=== PATIENT | male | born 1965 | race Caucasian/White ===

== ENCOUNTER 2016-06-04 23:00 | Emergency (ER) | payer MEDICARE, MEDICAID ==
[2016-06-04] MEDS ORDERED: LORazepam INJ* 2 MG/ML 1 ML VIAL IM ONE (23:13)
[2016-06-04] MEDS ORDERED: diPHENhydraMINE IV* 50 MG/ML 1 ml VIAL (BENADRYL) IM ONE (23:13)
[2016-06-04] MEDS ORDERED: Haloperidol INJ IV/IM* 5 MG/ML AMP IM ONE (23:13)
--- NOTE | 2016-06-05 00:11 | ED ---
Josh Alva Alok, derek for Alex Terrell MD on 06/04/16 at 2305 . Complex/Multi-Sys Presentation - HPI Summary HPI Summary: 51 y/o male presents to the ED BIBA. Pt is a level 5 caveat and contributes no medical information at this time.Pt trook overdose of heroin, found minimally responsive, awoke with narcan - History Of Current Complaint Time Seen by Provider: 06/04/16 23:02 Hx From Patient Unobtainable Due To: Altered Mental Status - Level 5 caveat, Hostile - Allergies/Home Medications Allergies/Adverse Reactions: Allergies Allergy/AdvReac Type Severity Reaction Status Date / Time Bupropion [From Wellbutrin] AdvReac Itching Verified 05/11/15 17:08 PMH/Surg Hx/FS Hx/Imm Hx - Family History Known Family History: Positive: Unknown - Level 5 caveat Review of Systems All Other Systems Reviewed And Are Negative: No Physical Exam Triage Information Reviewed: Yes Vital Signs On Initial Exam: Initial Vitals Resp 20 06/04/16 23:30 Vital Signs Reviewed: Yes Completion Of Physical Exam Limited Due To: Level 5 Appearance: Positive: Thin - responsive to stimuli Skin: Positive: Warm Head/Face: Positive: Normal Head/Face Inspection Eyes: Positive: SID ENT: Positive: Hearing grossly normal Neck: Positive: Supple Respiratory/Lung Sounds: Positive: Clear to Auscultation, Breath Sounds Present Cardiovascular: Positive: RRR Abdomen Description: Positive: Nontender, Soft Bowel Sounds: Positive: Present Musculoskeletal: Positive: Strength/ROM Intact Neurological: Positive: Sensory/Motor Intact Diagnostics - Vital Signs Vital Signs Resp 06/04/16 23:30 20 - Laboratory Result Diagrams: 06/05/16 01:40 06/05/16 01:40 Lab Statement: Any lab studies that have been ordered have been reviewed, and results considered in the medical decision making process. Re-Evaluation - Re-Evaluation First Eval Re-Evaluation Time: 06:06 Change: Improved - awake. alert. denies si,hi Complex Multi-Symp Course/Dx - Diagnoses Provider Diagnoses: Drug overdose Discharge - Discharge Plan Condition: Stable Disposition: HOME Referrals: Andi Montoya MD [Primary Care Provider] - The documentation as recorded by the Josh barajas Alok accurately reflects the service I personally performed and the decisions made by me, Alex Terrell MD.
[2016-06-05 02:15] LABS: Hematocrit 39 % (42-52); Hemoglobin 12.8 g/dl (14.0-18.0); Mean Corpuscular HGB Conc 33 g/dl (31-36); Mean Corpuscular Hemoglobin 29 pg (27-31); Mean Corpuscular Volume 87 fL (80-94); Mean Platelet Volume 8 um3 (7.4-10.4); Red Blood Count 4.46 10^6/ul (4.0-5.4); Red Cell Distribution Width 14 % (10.5-15); White Blood Count 3.9 10^3/ul (3.5-10.8)
[2016-06-05 02:24] LABS: ALT 7 U/L (7-52); AST 17 U/L (13-39); Albumin 3.6 g/dL (3.2-5.2); Alkaline Phosphatase 62 U/L (34-104); Anion Gap 3 mmol/L (2-11); BUN/Creatinine Ratio 24.7 (8-20); Blood Urea Nitrogen 20 mg/dL (6-24); CO2 Carbon Dioxide 32 mmol/L (22-32); Calcium 8.7 mg/dL (8.6-10.3); Chloride 103 mmol/L (101-111); EGFR African American 130.8 (>60); EGFR Non-African American 101.7 (>60); Globulin 2.4 g/dL (2-4); Glucose 90 mg/dL (70-100); Potassium 3.5 mmol/L (3.5-5.0); Sodium 138 mmol/L (133-145)
[2016-06-05 02:26] LABS: Acetaminophen < 15 mcg/mL; Alcohol < 10 mg/dL (<10); Salicylate < 2.50 mg/dL (<30)
[2016-06-05 06:34] VITALS: BP 102/75
== END 2016-06-05 06:28 | disposition home or self-care (01) ==
LOC: EDUNIT# → EDBD → ED 23:00
DX: T50.901A Poisoning by unspecified drugs, medicaments and biological substances, accidental (unintentional), initial encounter (principal); R41.82 Altered mental status, unspecified; Y92.9 Unspecified place or not applicable
CPT/HCPCS: 36415; 80053; 80320; 80329; 83605; 85025; 96372; 99285; G0480; J1200; J1630; J2060

== ENCOUNTER 2017-04-07 18:18 | Emergency (ER) | payer MEDICARE, MEDICAID ==
[2017-04-07] MEDS ORDERED: traMADol TAB* 50 MG PO ONE (19:28)
[2017-04-07] MEDS ORDERED: Ibuprofen TAB* 400 MG PO ONE (19:28)
[2017-04-07] MEDS ORDERED: oxyCODONE/Acetamin 5/325 MG* TAB PO ONE (19:46)
[2017-04-07] MEDS ORDERED: oxyCODONE/Acetamin 5/325 MG* TAB PO PRN (20:15)
[2017-04-07 21:12] VITALS: BP 124/70
--- NOTE | 2017-04-07 22:50 | ED ---
Giovani Alva Gabriel, scribed for Pk Cho MD on 04/07/17 at 1932 . Complex/Multi-Sys Presentation - HPI Summary HPI Summary: This patient is a 51 year old M presenting to [facility] after he ran out of his daily pain medication. The patient rates the pain 8/10 in severity. Patient reports general malaise, heart pain, and increased anxiety. He states he usually takes oxymorphone for neuropathy but has been out since 04/03/17. Additionally he reports inability to eat or sleep due to pain and is requesting pain medication and food. - History Of Current Complaint Chief Complaint: EDGeneral Time Seen by Provider: 04/07/17 19:12 Hx Obtained From: Patient Onset/Duration: Still Present Timing: Constant Severity Currently: Severe Severity Initially: Severe Associated Signs And Symptoms: Positive: Other - pain, general malaise, heart pain, and increased anxiety - Allergies/Home Medications Allergies/Adverse Reactions: Allergies Allergy/AdvReac Type Severity Reaction Status Date / Time Bupropion [From Wellbutrin] AdvReac Itching Verified 05/11/15 17:08 PMH/Surg Hx/FS Hx/Imm Hx Respiratory History: Reports: Hx Pneumonia Musculoskeletal History: Reports: Other Musculoskeletal History - Bilateral Leg Neuropathy Sensory History: Reports: Hx Contacts or Glasses Opthamlomology History: Reports: Hx Contacts or Glasses Neurological History: Reports: Other Neuro Impairments/Disorders - Bilateral Leg "Neuropathy" Psychiatric History: Reports: Hx Anxiety, Hx Depression, Hx Inpatient Treatment - [facility] [place] and [facility], Hx [facility], Hx Suicide Attempt - Cut wrist and OD, Hx of Violent Episodes Against Others, Hx Substance Abuse - Alcohol - Surgical History Surgery Procedure, Year, and Place: Tonsillectomy Infectious Disease History: No Infectious Disease History: Reports: Hx Hepatitis - Hepatitis C, History Other Infectious Disease - Reports having "genital warts" Denies: Traveled Outside the [place] in Last 30 Days - Family History Known Family History: Positive: Hypertension Negative: Diabetes, Renal Disease, Respiratory Disease, Seizure Disorder - Social History Alcohol Use: unknown Alcohol Amount: cannot assess Substance Use Type: Reports: Marijuana Substance Use Comment - Amount & Last Used: States taking a couple hits off a Marijuana cigarette last week. Hx Tobacco Use: Yes Smoking Status (MU): Current Every Day Smoker Type: Cigarettes Amount Used/How Often: 1/2 PPD Have You Smoked in the Last Year: Yes Review of Systems Positive: Other - general pain, general malaise. Negative: Fever Positive: Other - heart pain Positive: Anxious All Other Systems Reviewed And Are Negative: Yes Physical Exam - Summary Physical Exam Summary: Appearance: Well-appearing, no distress, Well-nourished Skin: Warm, color reflects adequate perfusion Head: Normal Head/Face inspection Eyes: Conjunctiva clear ENT: Normal inspection Neck: Supple, no nodes, no JVD. Respiratory: Lungs clear, Normal breath sounds, no respiratory distress Cardio: RRR, No murmur, pulses normal, brisk capillary refill Abdomen: soft, nontender, no guarding, no rebound Bowel sounds: present Musculoskeletal: Strength Intact/ ROM intact. No calf tenderness. No edema. Neuro: Alert, muscle tone normal, facial symmetry, speech normal, sensory/motor intact Psychological: Normal Triage Information Reviewed: Yes Vital Signs On Initial Exam: Initial Vitals Temp Pulse Resp BP Pulse Ox 98.8 F 88 20 128/73 97 04/07/17 18:31 04/07/17 18:31 04/07/17 18:31 04/07/17 18:31 04/07/17 18:31 Vital Signs Reviewed: Yes Diagnostics - Vital Signs Vital Signs Temp Pulse Resp BP Pulse Ox 04/07/17 19:20 80 99 04/07/17 19:18 70/49 04/07/17 18:31 98.8 F 88 20 128/73 97 - Laboratory Lab Statement: Any lab studies that have been ordered have been reviewed, and results considered in the medical decision making process. Re-Evaluation - Re-Evaluation First Eval Change: Improved - Pt symptoms improved with Po analgesia. Plan for pt to f.u with his provider for further evaluation and tx. Complex Multi-Symp Course/Dx - Diagnoses Differential Diagnoses/HQI/PQRI: Metabolic Abnormality, Urinary Tract Infection , Other Provider Diagnoses: Chronic pain Discharge - Discharge Plan Condition: Improved Disposition: HOME Patient Education Materials: Chronic Pain (ED) Referrals: Luis F Thao MD [Primary Care Provider] - 2 Days Additional Instructions: RETURN TO EMERGENCY DEPARTMENT FOR ANY NEW OR WORSENING SYMPTOMS The documentation as recorded by the Giovani barajas Gabriel accurately reflects the service I personally performed and the decisions made by , Pk Cho MD.
== END 2017-04-07 21:12 | disposition home or self-care (01) ==
LOC: ED 18:18
DX: G89.29 Other chronic pain (principal); F17.210 Nicotine dependence, cigarettes, uncomplicated; Z88.8 Allergy status to other drugs, medicaments and biological substances
CPT/HCPCS: 99282; A9270-GY

== ENCOUNTER 2018-11-06 09:55 | Emergency (ER) | payer MEDICARE, MEDICAID ==
[2018-11-06 10:02] VITALS: BP 0/0
--- NOTE | 2018-11-06 10:19 | ED ---
Complex/Multi-Sys Presentation - HPI Summary HPI Summary: This pt is a 52 Y/O M presenting to [facility] for a CC of pain that is rated a 10/ 10 in severity and has worsened since 11/04/18. The pt states that Dr. Lopez and Dr. Herrera cut his medications on 11/04/18 for neuropathy. He states that he has been unable to sleep and eat due to the pain. The pain is present in his lower extremities, abdomen, back, chest, upper extremity, and neck. He denies any SOB, fevers, and chills. He has no alleviating factors. He stated that while he was on his medications he did not feel any pain. He takes Oxymorphone and Gabapentin for his neuropathy. He has a SHx of recreational drug use, cigarette use, and alcohol use. He stated that he has increased the amount he drinks due to the pain and being unable to sleep. - History Of Current Complaint Chief Complaint: EDGeneral Time Seen by Provider: 11/06/18 10:02 Hx Obtained From: Patient Onset/Duration: Sudden Onset, Still Present, Worse Since - 11/04/18 Timing: Constant Severity Currently: Severe Severity Initially: Moderate Location: Pain At: - Pt states that the pain is over his entire body Aggravating Factor(s): Pt states that his medications were D/C'd Alleviating Factor(s): nothing Associated Signs And Symptoms: Positive: Chest Pain, Abdominal Pain, Back Pain, Decreased Oral Intake, Other - sleep disturbances, neck pain, lower extremity pain, upper extremity pain, chills. Negative: SOB, Fever Related History: Other - neuropathy - Allergies/Home Medications Allergies/Adverse Reactions: Allergies Allergy/AdvReac Type Severity Reaction Status Date / Time bupropion [From Wellbutrin] Allergy Unknown Itching Unverified 11/06/18 10:10 PMH/Surg Hx/FS Hx/Imm Hx Previously Healthy: No Respiratory History: Reports: Hx Pneumonia Musculoskeletal History: Reports: Other Musculoskeletal History - Bilateral Leg Neuropathy Sensory History: Reports: Hx Contacts or Glasses Opthamlomology History: Reports: Hx Contacts or Glasses Neurological History: Reports: Other Neuro Impairments/Disorders - Bilateral Leg "Neuropathy" Psychiatric History: Reports: Hx Anxiety, Hx Depression, Hx Inpatient Treatment - [facility] [place] and [facility], Hx [facility], Hx Suicide Attempt - Cut wrist and OD, Hx of Violent Episodes Against Others, Hx Substance Abuse - Alcohol - Surgical History Surgery Procedure, Year, and Place: Tonsillectomy Infectious Disease History: Unable to Obtain/Confirm Infectious Disease History: Reports: Hx Hepatitis - Hepatitis C, History Other Infectious Disease - Reports having "genital warts" Denies: Traveled Outside the [place] in Last 30 Days - Family History Known Family History: Positive: Unknown - Level 5 caveat, Hypertension Negative: Diabetes, Renal Disease, Respiratory Disease, Seizure Disorder - Social History Alcohol Use: unk Alcohol Amount: pt not answering questions 11/06/18 Substance Use Type: Reports: Other Substance Use Comment - Amount & Last Used: unk, pt not answering questions 11/06 Hx Tobacco Use: Yes Smoking Status (MU): Unknown if Ever Smoked Type: Cigarettes Amount Used/How Often: 1/2 PPD Have You Smoked in the Last Year: Yes Review of Systems Negative: Fever, Chills ENT: Other - neck pain Positive: Chest Pain Negative: Shortness Of Breath Positive: Abdominal Pain Positive: Other - lower and upper extremity pain Neurological: Other - decreased appetite Psychological: Other - sleep disturbances All Other Systems Reviewed And Are Negative: Yes Physical Exam - Summary Physical Exam Summary: Constitutional: Well-developed, Well-nourished, Alert. (-) Distressed Skin: Warm, Dry HENT: Normocephalic; Atraumatic Eyes: Conjunctiva normal Neck: Musculoskeletal ROM normal neck. (-) JVD, (-) Stridor, (-) Tracheal deviation Cardio: Rhythm regular, rate normal, Heart sounds normal; Intact distal pulses; The pedal pulses are 2+ and symmetric. Radial pulses are 2+ and symmetric. (-) Murmur Pulmonary/Chest wall: Effort normal. (-) Respiratory distress, (-) Wheezes, (-) Rales Abd: Soft, (-) tenderness, (-) Distension, (-) Guarding, (-) Rebound Musculoskeletal: (-) Edema Lymph: (-) Cervical adenopathy Neuro: Alert, Oriented x3 Psych: Mood and affect Normal Triage Information Reviewed: Yes Vital Signs On Initial Exam: Initial Vitals Temp Pulse Resp BP Pulse Ox 0 F 0 0 0/0 0 11/06/18 09:59 11/06/18 09:59 11/06/18 09:59 11/06/18 09:59 11/06/18 09:59 Vital Signs Reviewed: Yes Diagnostics - Vital Signs Vital Signs Temp Pulse Resp BP Pulse Ox 11/06/18 09:59 0 F 0 0 0/0 0 - Laboratory Lab Statement: Any lab studies that have been ordered have been reviewed, and results considered in the medical decision making process. Complex Multi-Symp Course/Dx Course Of Treatment: Patient is mundo as he is out of pain medication. Patient was hostile to myself and the staff here. Patient was making threats to past physicians who stopped treating him. Patient had an emergent condition here. Patient's doctor was called and states he is referred to pain clinic who never saw him and referred him to detox. Patient is also given detox instructions here. - Diagnoses Provider Diagnoses: Opiate addiction, Chronic pain Discharge ED - Sign-Out/Discharge Documenting (check all that apply): Patient Departure - discharge Patient Received Moderate/Deep Sedation with Procedure: No - Discharge Plan Condition: Stable Disposition: HOME Patient Education Materials: Pain Management (ED), Chronic Pain (ED), Opioid Use Disorder (ED) Referrals: [facility] - Residential Facility [Outside] - As Soon As Possible [facility],. [Indexing, APPLICATION, OTHER] - As Soon As Possible Luis F Thao MD [Primary Care Provider] - 2 Days Additional Instructions: PLEASE FOLLOW UP WITH YOUR PRIMARY CARE PROVIDER IN 2-3 DAYS AND RETURN TO THE EMERGENCY DEPARTMENT FOR ANY NEW OR WORSENING SYMPTOMS. ALSO FOLLOW UP WITH [facility] AND [facility] FOR FURTHER EVALUATIONS. - Billing Disposition and Condition Condition: STABLE Disposition: Home - Attestation Statements Document Initiated by Jacky: Yes Documenting Scribe: Luis King Provider For Whom Jacky is Documenting (Include Credential): Rajesh Charles MD Scribe Attestation: ILuis, scribed for Rajesh Charles MD on 11/06/18 at 1218. Scribe Documentation Reviewed: Yes Provider Attestation: The documentation as recorded by the Luis barajas accurately reflects the service I personally performed and the decisions made by me, Rajesh Charles MD Status of Scribe Document: Viewed Consult Consult: Dr. Herrera, [facility], was consulted at 1024 and stated that he has never seen the pt before. Dr. Lopez, internal medicaine, was consulted at 1058 and informed of the pt. Per Dr. Lopez he was referred to him by his old doctor for pain. Dr. Lopez did not want to prescribe the pt any opiates and referred him to Dr. Herrera who then referred the pt to [facility] and [facility]. Dr. Lopez recommended referring the pt to [facility] to help with opiate addiction.
== END 2018-11-06 11:11 | disposition home or self-care (01) ==
LOC: ED 09:55
DX: G89.29 Other chronic pain (principal); F11.20 Opioid dependence, uncomplicated; F41.9 Anxiety disorder, unspecified; F32.9 Major depressive disorder, single episode, unspecified; F17.210 Nicotine dependence, cigarettes, uncomplicated; Z88.8 Allergy status to other drugs, medicaments and biological substances; Z79.899 Other long term (current) drug therapy
CPT/HCPCS: 99283

== ENCOUNTER 2018-11-11 17:40 | Emergency (ER) | payer MEDICARE, MEDICAID ==
[2018-11-11 17:50] VITALS: BP 00/0
--- NOTE | 2018-11-11 18:53 | ED ---
Psychiatric Complaint - HPI Summary HPI Summary: The patient is a 53 y/o M presenting to [facility] with cc of pain all over his body today. He called EMS who brought him here, but he has been violent and [employer] assisted in transport. He has been taken off all of his psychiatric medications because he refuses to go to the doctors or follow up with detox regimen as recommended. He states difficulty sleeping secondary to pain. He is threatening staff. PMHx: anxiety, depression, inpatient treatment, suicide attempt, violent episodes against others, substance abuse, hepatitis C. Pt noncontributory for social history at this time. Allergies noted. - History Of Current Complaint Chief Complaint: EDPsychosocial Time Seen by Provider: 11/11/18 17:48 Hx Obtained From: Patient, EMS, Other: - police Onset/Duration: Still Present Timing: Constant Severity Initially: Severe Severity Currently: Severe Character: Angry Aggravating Factor(s): Medication Non-compliance Associated Signs And Symptoms: Positive: Hostile Related History: Positive For: Prior Psychiatric Issues Has Homicidal: Reports: Thoughts - Allergies/Home Medications Allergies/Adverse Reactions: Allergies Allergy/AdvReac Type Severity Reaction Status Date / Time bupropion [From Wellbutrin] Allergy Unknown Itching Verified 11/11/18 22:26 PMH/Surg Hx/FS Hx/Imm Hx Respiratory History: Reports: Hx Pneumonia Musculoskeletal History: Reports: Other Musculoskeletal History - Bilateral Leg Neuropathy Sensory History: Reports: Hx Contacts or Glasses Opthamlomology History: Reports: Hx Contacts or Glasses Neurological History: Reports: Other Neuro Impairments/Disorders - Bilateral Leg "Neuropathy" Psychiatric History: Reports: Hx Anxiety, Hx Depression, H[place] [facility] [place] [facility], Hx [facility], Hx Suicide Attempt - Cut wrist and OD, Hx of Violent Episodes Against Others, Hx Substance Abuse - Alcohol - Surgical History Surgery Procedure, Year, and Place: Tonsillectomy Infectious Disease History: No Infectious Disease History: Reports: Hx Hepatitis - Hepatitis C, History Other Infectious Disease - Reports having "genital warts" Denies: Traveled Outside the [place] in Last 30 Days - Family History Known Family History: Positive: Unknown - Level 5 caveat, Hypertension Negative: Diabetes, Renal Disease, Respiratory Disease, Seizure Disorder - Social History Alcohol Use: WONT ELABORATE Alcohol Amount: pt not answering questions 11/06/18 Substance Use Type: Reports: Other Substance Use Comment - Amount & Last Used: unk, pt not answering questions 11/06 Hx Tobacco Use: Yes Smoking Status (MU): Unknown if Ever Smoked Type: Cigarettes Amount Used/How Often: 1/2 PPD Have You Smoked in the Last Year: Yes Review of Systems Positive: Other - shouting threats Psychological: Other - irritated, HI All Other Systems Reviewed And Are Negative: Yes Physical Exam - Summary Physical Exam Summary: General: Well appearing, no distress Cardiovascular: Skin is well perfused Pulmonary: No respiratory distress, no tachypnea Abdomen: Non-distended Skin: Warm, pink, dry Psych: Angry, shouting Neuro: A&Ox3 Triage Information Reviewed: Yes Vital Signs On Initial Exam: Initial Vitals Temp Pulse Resp BP Pulse Ox 0 F 0 0 00/0 0 11/11/18 17:48 11/11/18 17:48 11/11/18 17:48 11/11/18 17:48 11/11/18 17:48 Vital Signs Reviewed: Yes Diagnostics - Vital Signs Vital Signs Temp Pulse Resp BP Pulse Ox 11/11/18 17:57 0 F 0 0 00/0 0 11/11/18 17:48 0 F 0 0 00/0 0 - Laboratory Lab Statement: Any lab studies that have been ordered have been reviewed, and results considered in the medical decision making process. Course/Dx - Course Course Of Treatment: Patient called EMS due to his chronic pain. I evaluated patient roughly 1 week ago and patient was referred to pain clinic. Patient's referral to pain clinic and it up and referral to detox. Patient came in as he does not have access to his opiate medication. The incident patient saw me, he started yelling at me about the visit from last week. Patient states she went to [facility] but they had to pay 200 also be evaluated. Patient was told we cannot manage his chronic pain from the emergency department and became irate. Patient then spat on my right cheek. Patient was discharged. - Differential Dx/Clinical Impression Provider Diagnosis: Opiate abuse, continuous Discharge ED - Sign-Out/Discharge Documenting (check all that apply): Patient Departure - Patient will be dishcarged home. Patient Received Moderate/Deep Sedation with Procedure: No - Discharge Plan Condition: Stable Disposition: HOME Patient Education Materials: Opioid Safety (ED), Opioid Use Disorder (ED) Referrals: [facility] [Outside] - 1 Day [facility],. [Z.BUSINESS, APPLICATION, OTHER] - 1 Day Luis F Thao MD [Primary Care Provider] - 1 Day Additional Instructions: Follow up with [facility]. - Billing Disposition and Condition Condition: STABLE Disposition: Home - Attestation Statements Document Initiated by Jacky: Yes Documenting Scribe: Brandi Hartman Provider For Whom Jacky is Documenting (Include Credential): Dr. Rajesh Charles MD Scribe Attestation: IBrandi scribed for Dr. Rajesh Charles MD on 11/13/18 at 1400. Scribe Documentation Reviewed: Yes Provider Attestation: The documentation as recorded by the Brandi barajas accurately reflects the service I personally performed and the decisions made by me, Dr. Rajesh Charles MD Status of Scribe Document: Viewed
== END 2018-11-11 17:57 | disposition home or self-care (01) ==
LOC: ED 17:40
DX: F11.10 Opioid abuse, uncomplicated (principal); F41.9 Anxiety disorder, unspecified; F32.9 Major depressive disorder, single episode, unspecified; F17.210 Nicotine dependence, cigarettes, uncomplicated; Z79.899 Other long term (current) drug therapy; Z88.8 Allergy status to other drugs, medicaments and biological substances
CPT/HCPCS: 36415; 80053; 80307; 80320; 81003; 85025; 96372; 99283; 99285; G0480; J1630; J2060

== ENCOUNTER 2018-11-11 18:26 | Emergency (ER) | payer MEDICARE, MEDICAID ==
--- NOTE | 2018-11-11 19:00 | ED ---
Psychiatric Complaint - HPI Summary HPI Summary: The patient is a 53 y/o M brought in by [facility] as 941 for violence towards others. It is reported that after being discharged from the ED in the last hour, he was aggressive towards police, and it was decided that he would come back to the ED as 941. A spit mask was placed on the face. He is shouting obscenities in the room. He reports SI and HI. He hasnt been taking medications for bipolar disorder. PMHx: anxiety, depression, intpatient treatment, suicide attempt, violent episodes against others, substance abuse, hepatitis C. Pt noncontributory for social history at this time. - History Of Current Complaint Chief Complaint: EDMentalHealth Time Seen by Provider: 11/11/18 18:50 Hx Obtained From: Patient Onset/Duration: Still Present Timing: Constant Severity Initially: Severe Severity Currently: Severe Character: Angry Aggravating Factor(s): Nothing Alleviating Factor(s): Nothing Associated Signs And Symptoms: Positive: Hostile Related History: Positive For: Prior Psychiatric Issues Has Suicidal: Reports: Thoughts Has Homicidal: Reports: Thoughts - Allergies/Home Medications Allergies/Adverse Reactions: Allergies Allergy/AdvReac Type Severity Reaction Status Date / Time bupropion [From Wellbutrin] Allergy Unknown Itching Unverified 11/06/18 10:10 PMH/Surg Hx/FS Hx/Imm Hx Endocrine/Hematology History: Denies: Hx Diabetes Respiratory History: Reports: Hx Pneumonia Musculoskeletal History: Reports: Other Musculoskeletal History - Bilateral Leg Neuropathy Sensory History: Reports: Hx Contacts or Glasses Opthamlomology History: Reports: Hx Contacts or Glasses Neurological History: Reports: Other Neuro Impairments/Disorders - Bilateral Leg "Neuropathy" Psychiatric History: Reports: Hx Anxiety, Hx Depression, Hx [place] [facility] [place] [facility], Hx [facility], Hx Suicide Attempt - Cut wrist and OD, Hx of Violent Episodes Against Others, Hx Substance Abuse - Alcohol - Surgical History Surgical History: Yes Surgery Procedure, Year, and Place: Tonsillectomy Infectious Disease History: No Infectious Disease History: Reports: Hx Hepatitis - Hepatitis C, History Other Infectious Disease - Reports having "genital warts" Denies: Traveled Outside the [place] in Last 30 Days - Family History Known Family History: Positive: Hypertension Negative: Diabetes, Renal Disease, Respiratory Disease, Seizure Disorder - Social History Alcohol Use: WONT ELABORATE Alcohol Amount: pt not answering questions 8/30/19 Substance Use Type: Reports: Other Substance Use Comment - Amount & Last Used: unk, pt not answering questions 11/06 Hx Tobacco Use: Yes Smoking Status (MU): Unknown if Ever Smoked - pt non-contributory Type: Cigarettes Amount Used/How Often: 1/2 PPD Have You Smoked in the Last Year: Yes Review of Systems Positive: Other - violent towards others with shouting obscenities Psychological: Other - SI, HI All Other Systems Reviewed And Are Negative: Yes Physical Exam - Summary Physical Exam Summary: General: Well appearing, no distress Cardiovascular: Skin is well perfused Pulmonary: No respiratory distress, no tachypnea Abdomen: Non-distended Skin: Warm, pink, dry Psych: Agitated, swearing at everyone in the room Neuro: A&Ox3 Triage Information Reviewed: Yes Vital Signs On Initial Exam: Initial Vitals Temp Pulse Resp BP Pulse Ox 98.1 F 127 18 149/113 98 11/11/18 18:29 11/11/18 18:29 11/11/18 18:29 11/11/18 18:29 11/11/18 18:29 Vital Signs Reviewed: Yes Diagnostics - Vital Signs Vital Signs Temp Pulse Resp BP Pulse Ox 11/11/18 18:29 98.1 F 127 18 149/113 98 - Laboratory Result Diagrams: 11/11/18 19:54 11/11/18 19:54 Lab Statement: Any lab studies that have been ordered have been reviewed, and results considered in the medical decision making process. Re-Evaluation - Re-Evaluation First Eval Re-Evaluation Time: 18:56 Comment: Restraints placed. Will remove in 30 mintues. Second Eval Re-Evaluation Time: 19:10 Comment: Patient reports EtOH use today so he is not medically clear at this time. Third Eval Re-Evaluation Time: 20:48 Comment: Patient's EtOH is 123; he is medically cleared for MHE. Course/Dx - Course Course Of Treatment: Patient was brought in after being discharged from the ED. Patient was irate outside and started spitting on please officers. Patient was handcuffed, a spit mask was placed, and patient was brought in under a 941. Upon arrival, patient was irate and saying he wanted to kill everybody in the room. Patient also said if he went home he would kill himself. Psychiatry evaluated the patient and found that he drank alcohol today. Patient had labs performed which showed an alcohol of 123. Patient was monitored for 1 hour post that level. Psychiatry was comfortable with patient being discharged to police - Differential Dx/Clinical Impression Provider Diagnosis: Mood disorder, Opiate abuse, continuous - Physician Notifications Discussed Care Of Patient With: Stephane Jenkins - mental health health specialist Time Discussed With Above Provider: 21:30 Instructed by Provider To: Other - Stephane reports that Dr. Dumont, pyschiatry, is discharging pt to law enforcement with dx of mood disorder. They will discharge the patient. Discharge ED - Sign-Out/Discharge Documenting (check all that apply): Patient Departure - Patient will be discharged to police department. Patient Received Moderate/Deep Sedation with Procedure: Yes - Discharge Plan Condition: Stable Disposition: LAW ENFORCEMENT/COURT Patient Education Materials: Mood Disorders (ED), Moderate Sedation (ED), Opioid Withdrawal (ED) Referrals: [facility] [Outside] (follow up as soon as possible) Luis F Thao MD [Primary Care Provider] - - Billing Disposition and Condition Condition: STABLE Disposition: Law Enforcement/Court - Attestation Statements Document Initiated by Scribe: Yes Documenting Scribe: Brandi Hartman Provider For Whom Jacky is Documenting (Include Credential): Dr. Rajesh Charles MD Scribe Attestation: Brandi Alva scribed for Dr. Rajesh Charles MD on 11/11/18 at 2153. Scribe Documentation Reviewed: Yes Provider Attestation: The documentation as recorded by the Brandi barajas accurately reflects the service I personally performed and the decisions made by me, Dr. Rajesh Charles MD Status of Scribe Document: Viewed
[2018-11-11] MEDS ORDERED: Haloperidol INJ IV/IM* 5 MG/ML AMP IM ONE ×2 (19:21→22:22)
[2018-11-11 20:02] LABS: ABS Basophils 0.1 10^3/ul (0-0.2); ABS Eosinophils 0.1 10^3/ul (0-0.6); ABS Lymphocytes 1.6 10^3/ul (1.0-4.8); ABS Monocytes 0.7 10^3/ul (0-0.8); ABS Neutrophils 8.9 10^3/ul (1.5-7.7); Eosinophil % 0.7 %; Hematocrit 47 % (42-52); Hemoglobin 15.8 g/dL (14.0-18.0); Lymphocyte % 13.9 %; Mean Corpuscular HGB Conc 34 g/dL (31-36); Mean Corpuscular Hemoglobin 29 pg (27-31); Mean Corpuscular Volume 85 fL (80-94); Mean Platelet Volume 7.2 fL (7.4-10.4); Platelet Count 289 10^3/uL (150-450); Red Blood Count 5.46 10^6 /uL (4.18-5.48); Red Cell Distribution Width 14 % (10-15); White Blood Count 11.2 10^3/uL (3.5-10.8)
[2018-11-11 20:19] LABS: Albumin 5.2 g/dL (3.2-5.2); Albumin/Globulin Ratio 1.8 (1-3); BUN/Creatinine Ratio 13.6 (8-20); Calcium 10.3 mg/dL (8.6-10.3); EGFR African American 110.5 (>60); EGFR Non-African American 91.3 (>60); Globulin 2.9 g/dL (2-4); Potassium 4.1 mmol/L (3.5-5.0); Total Bilirubin 0.3 mg/dL (0.2-1.0); Total Protein 8.1 g/dL (6.4-8.9)
[2018-11-11 20:42] LABS: Urine Appearance Clear; Urine Bilirubin Negative (Negative); Urine Blood Negative (Negative); Urine Color Straw; Urine Glucose Negative (Negative); Urine Ketones Negative (Negative); Urine Nitrite Negative (Negative); Urine Protein Negative (Negative); Urine Specific Gravity 1.004 (1.010-1.030); Urine Urobilinogen Negative (Negative)
[2018-11-11 20:56] LABS: Urine Benzodiazepine Screen None Detected (None Detect); Urine Opiates Screen None Detected (None Detect)
[2018-11-11] MEDS ORDERED: LORazepam INJ* 2 MG/ML 1 ML VIAL IM ONE (22:22)
--- NOTE | 2018-11-11 22:24 | ED ---
Progress - Progress Note Progress Note: Pt is a signout from Dr. Charles at 2200 on 11/11/18 pending disposition. - Consult/PCP Time Called: 21:04 Re-Evaluation - Re-Evaluation First Eval Re-Evaluation Time: 18:56 Comment: Restraints placed. Will remove in 30 mintues. Second Eval Re-Evaluation Time: 19:10 Comment: Patient reports EtOH use today so he is not medically clear at this time. Third Eval Re-Evaluation Time: 20:48 Comment: Patient's EtOH is 123; he is medically cleared for MHE. Course/Dx - Course Course Of Treatment: Pt is a signout from Dr. Charles at 2200 on 11/11/18 pending disposition. Pt will be signed out to Dr. Charles pending MH hold. - Diagnoses Provider Diagnoses: Mood disorder, Opiate abuse, continuous - Provider Notifications Time Discussed With Above Provider: 21:30 Instructed by Provider To: Other - Stephane reports that Dr. Dumont, pyschiatry, is discharging pt to law enforcement with dx of mood disorder. They will discharge the patient. Discharge ED - Sign-Out/Discharge Documenting (check all that apply): Sign-Out Patient, Receiving Sign-Out Signing out patient TO: Rey Farias Receiving patient FROM: Rajesh Charles - Discharge Plan Condition: Stable Disposition: LAW ENFORCEMENT/COURT Patient Education Materials: Mood Disorders (ED), Moderate Sedation (ED), Opioid Withdrawal (ED) Referrals: [facility] [Outside] (follow up as soon as possible) Luis F Thao MD [Primary Care Provider] - - Attestation Statements Document Initiated by Scribe: Yes Documenting Scribe: Clary Pedroza Provider For Whom Jacky is Documenting (Include Credential): Edy Cuello MD. Scribe Attestation: Clary Alva, fermined for Edy Cuello MD. on 11/12/18 at 0700. Status of Scribe Document: Ready
[2018-11-11] MEDS ORDERED: Lorazepam PYXIS KEY ONE (22:27)
--- NOTE | 2018-11-12 06:33 | PN ---
ED Psychiatric Progress Note Date of Service: 11/11/18 Subjective: This is a 53 year-old M who is pending admission to [facility] / transfer to another psychiatric facility / discharge to home / or being observed secondary to mood d/o and ETOH use. Pt. examined in room 15 at 0630. He is sleeping comfortably. Objective: Vitals: Most recent vital signs documented below. General NAD Laboratory: Current laboratory results documented below. Assessment: Mood d/o Plan: Pending re-evaluation. Vital Signs Temp Pulse Resp BP Pulse Ox 97.2 F 85 14 130/83 99 11/12/18 05:25 11/12/18 05:25 11/12/18 05:25 11/12/18 05:25 11/12/18 05:25 Lab Results - Entire Visit 11/11/18 11/11/18 11/11/18 20:28 20:28 19:54 WBC RBC Hgb Hct MCV MCH MCHC RDW Plt Count MPV Neut % (Auto) Lymph % (Auto) Keith % (Auto) Eos % (Auto) Baso % (Auto) Absolute Neuts (auto) Absolute Lymphs (auto) Absolute Monos (auto) Absolute Eos (auto) Absolute Basos (auto) Absolute Nucleated RBC Nucleated RBC % Sodium 138 Potassium 4.1 Chloride 103 Carbon Dioxide 25 Anion Gap 10 BUN 12 Creatinine 0.88 Est GFR ( Amer) 110.5 Est GFR (Non-Af Amer) 91.3 BUN/Creatinine Ratio 13.6 Glucose 129 H Calcium 10.3 Total Bilirubin 0.30 AST 14 ALT 12 Alkaline Phosphatase 81 Total Protein 8.1 Albumin 5.2 Globulin 2.9 Albumin/Globulin Ratio 1.8 Urine Color Straw Urine Appearance Clear Urine pH 5.0 Ur Specific Lincoln 1.004 L Urine Protein Negative Urine Ketones Negative Urine Blood Negative Urine Nitrate Negative Urine Bilirubin Negative Urine Urobilinogen Negative Ur Leukocyte Esterase Negative Urine Glucose Negative Urine Opiates Screen None detected Ur Barbiturates Screen None detected Ur Phencyclidine Scrn None detected Ur Amphetamines Screen None detected U Benzodiazepines Scrn None detected Urine Cocaine Screen None detected U Cannabinoids Screen Presumptive positive A Serum Alcohol 123 H 11/11/18 19:54 WBC 11.2 H RBC 5.46 Hgb 15.8 Hct 47 MCV 85 MCH 29 MCHC 34 RDW 14 Plt Count 289 MPV 7.2 L Neut % (Auto) 78.9 Lymph % (Auto) 13.9 Keith % (Auto) 6.0 Eos % (Auto) 0.7 Baso % (Auto) 0.5 Absolute Neuts (auto) 8.9 H Absolute Lymphs (auto) 1.6 Absolute Monos (auto) 0.7 Absolute Eos (auto) 0.1 Absolute Basos (auto) 0.1 Absolute Nucleated RBC 0.0 Nucleated RBC % 0.0 Sodium Potassium Chloride Carbon Dioxide Anion Gap BUN Creatinine Est GFR ( Amer) Est GFR (Non-Af Amer) BUN/Creatinine Ratio Glucose Calcium Total Bilirubin AST ALT Alkaline Phosphatase Total Protein Albumin Globulin Albumin/Globulin Ratio Urine Color Urine Appearance Urine pH Ur Specific Lincoln Urine Protein Urine Ketones Urine Blood Urine Nitrate Urine Bilirubin Urine Urobilinogen Ur Leukocyte Esterase Urine Glucose Urine Opiates Screen Ur Barbiturates Screen Ur Phencyclidine Scrn Ur Amphetamines Screen U Benzodiazepines Scrn Urine Cocaine Screen U Cannabinoids Screen Serum Alcohol
--- NOTE | 2018-11-12 07:16 | ED ---
Progress - Progress Note Progress Note: Patient is received as a sign out from Dr. Cuello to Dr. Farias at 0700 11/12/18 shift change pending disposition of this mental health hold. 0857 - Dr. Maria in emergency department, he states that the patient's disposition is still pending at present. 1009 Patient to be discharged with diagnosis of alcohol intoxication, per Dr. Maria. - Consult/PCP Time Called: 21:04 Re-Evaluation - Re-Evaluation First Eval Re-Evaluation Time: 18:56 Comment: Restraints placed. Will remove in 30 mintues. Second Eval Re-Evaluation Time: 19:10 Comment: Patient reports EtOH use today so he is not medically clear at this time. Third Eval Re-Evaluation Time: 20:48 Comment: Patient's EtOH is 123; he is medically cleared for MHE. Course/Dx - Course Course Of Treatment: Patient is received as a sign out from Dr. Cuello to Dr. Farias at 0700 11/12/18 shift change pending disposition of this mental health hold. 0857 - Dr. Maria in emergency department, he states that the patient's disposition is still pending at present. 1009 Patient to be discharged with diagnosis of alcohol intoxication, per Dr. Maria. - Diagnoses Provider Diagnoses: Alcohol intoxication - Provider Notifications Discussed Care Of Patient With: Usman Maria Time Discussed With Above Provider: 08:57 Instructed by Provider To: Other - 0857 - Dr. Maria in emergency department, he states that the patient's disposition is still pending at present. 1009 Patient to be discharged with diagnosis of alcohol intoxication, per Dr. Maria. Discharge ED - Sign-Out/Discharge Documenting (check all that apply): Patient Departure - discharge Patient Received Moderate/Deep Sedation with Procedure: No - Discharge Plan Condition: Stable Disposition: LAW ENFORCEMENT/COURT Patient Education Materials: Mood Disorders (ED), Moderate Sedation (ED), Opioid Withdrawal (ED) [facility] [Outside] (follow up as soon as possible) Luis F Thao MD [Primary Care Provider] - - Attestation Statements Document Initiated by Scribe: Yes Documenting Scribe: HARJEET KAM Provider For Whom Scribe is Documenting (Include Credential): ANABELLA FARIAS MD Scribe Attestation: IHARJEET, scribed for ANABELLA FARIAS MD on 11/12/18 at 1030. Status of Scribe Document: Ready
[2018-11-12 08:47] VITALS: BP 124/66
== END 2018-11-12 11:13 ==
LOC: ED 18:26
DX: F10.929 Alcohol use, unspecified with intoxication, unspecified (principal); F11.10 Opioid abuse, uncomplicated; F39 Unspecified mood [affective] disorder; F41.9 Anxiety disorder, unspecified; F32.9 Major depressive disorder, single episode, unspecified; F17.210 Nicotine dependence, cigarettes, uncomplicated; Z79.899 Other long term (current) drug therapy; Z88.8 Allergy status to other drugs, medicaments and biological substances
CPT/HCPCS: 36415; 80053; 80307; 80320; 81003; 85025; 96372; 99285; G0480; J1630; J2060

== ENCOUNTER 2018-11-24 12:40 | Emergency (ER) | payer MEDICARE, MEDICAID ==
--- OUTSIDE RECORDS SUMMARY | 2018-11-24 13:22 | XMS REPORT | Continuity of Care Document ---
:1965 External Reference #:[id number] Author Name Chantel Alfaro DO (transmitted by agent of provider Brie Lester) Address [address] [place] [id number] Care Team Providers Name Role Phone Jose Guadalupe German MD - Neuromuscular Care Team Information Business Development Professional Medicine Jaspal Vargas DO - Interventional Care Team Information Business Development Professional Pain Medicine Dexter Lopez MD - Hospitalist Care Team Information Business Development Professional [phone] Problems Active Problems Provider Date Alcoholic polyneuropathy Andi Montoya M.D.,FACP Onset: 01/11/2008 Frostbite of foot Andi Montoya M.D.,FACP Onset: 01/11/2008 Idiopathic peripheral neuropathy Andi Montoya M.D.,FACP Onset: 2010 Chronic hepatitis C Andi Montoya M.D.,FACP Onset: 03/15/2010 Tobacco user Andi Montoya M.D.,FACP Onset: 01/17/2011 Chronic pain syndrome Andi Montoya M.D.,FACP Onset: 06/06/2011 Screening for malignant neoplasm of Dexter Lopez MD Onset: 09/22/2018 colon Bipolar disorder Dexter Lopez MD Onset: 09/22/2018 Social History Type Date Description Comments Sex Unknown Cigarette Use Pack Years - 32 Tobacco Use Start: Unknown currently smokes 1/2 Pack Daily Smoking Status Reviewed: 11/16/18 currently smokes 1/2 Pack Daily ETOH Use 09/16/2012 Has consumed alcohol abuse, quit 2008 in the past Recreational Drug Use Former Drug User marijuana occasionally in past Tobacco Use Start: Unknown Patient is a current smoker, smokes every day Allergies, Adverse Reactions, Alerts Active Allergies Reaction Severity Comments Date Wellbutrin 05/07/2013 Inactive Allergies NKDA 05/26/2007 Medications Active Medications SIG Qnty Indications Ordering Date Provider Duloxetine HCL take one tab daily 30caps G89.4 Chantel Alfaro, 11/16/[address] Part Oxymorphone HCL ER 1 tab every 4-6 150tabs G62.1 Dexter Lopez MD 10/05/2018 hours 40mg Tablets ER 12HR Ra Nicotine Gum Take up to every 2 100units F17.210 Dexter Lopez MD 2018 2mg hours as needed Gum for cravings. Nicotine Transdermal apply transdermal 28units F17.210 Dexter Lopez MD 09/22 System Step 3 patch daily 7mg/24HR Patches 24HR Gabapentin 1 by mouth four 120tabs G62.1 Chantel Alfaro, 09/22/2018 800mg times a day DO Tablets Multivitamins 1 po qd 90caps Andi Sands Tata Montoya,FACP Capsules Immunizations CPT Code Status Date Vaccine Lot # [id number] Given 02/13/2012 Fluvirin Im 3Yrs And Older [id number] 19536 Given 01/17/2011 Influenza Virus 3Yrs & Over [id number] 31455 Given 01/17/2011 Hepatitis A Vaccine Adult Dosage [id number] 64517 Given 10/08/2010 Hepatitis B Vaccine Adult Dosage [id number] 87081 Given 05/07/2010 Hepatitis B Vaccine Adult Dosage [id number] 49007 Given 04/09/2010 Hepatitis B Vaccine Adult Dosage [id number] 14873 Given 04/09/2010 Hepatitis A Vaccine Adult Dosage [id number] 12566 Given 03/15/2010 Influenza Virus 3Yrs & Over [id number] 62525 Given 01/11/2008 Pneumonia Vaccine [id number] 83815 Given 01/11/2008 Influenza Virus 3Yrs & Over 91633 Given 01/11/2008 Influenza Virus 3Yrs & Over [id number] Vital Signs Date Vital Result Comment 11/16/2018 3:55pm Height 70.75 inches 5'10.75" Weight 153.00 lb Heart Rate 97 /min BP Systolic 147 mmHg BP Diastolic 87 mmHg O2 % BldC Oximetry 98 % BMI (Body Mass Index) 21.5 kg/m2 09/22/2018 10:17am Height 70.75 inches 5'10.75" Weight 152.00 lb Heart Rate 56 /min BP Systolic 113 mmHg BP Diastolic 70 mmHg O2 % BldC Oximetry 97 % BMI (Body Mass Index) 21.3 kg/m2 Results Description No Information Available Procedures Description No Information Available Medical Devices Description No Information Available Encounters Type Date Location Provider Dx Diagnosis Office Visit 09/22/2018 [facility] Internal Dexter Lopez MD G89.4 Chronic pain 10:20a Medicine - [address] syndrome F17.210 Nicotine dependence, cigarettes, uncomplicated Z12.11 Encounter for screening for malignant neoplasm of colon F31.9 Bipolar disorder, unspecified Assessments Date Code Description Provider 11/16/2018 G89.4 Chronic pain syndrome Chantel Alfaro DO 11/16/2018 G62.9 Polyneuropathy, unspecified Chantel Alfaro DO 09/22/2018 G89.4 Chronic pain syndrome Dexter Lopez MD 09/22/2018 F17.210 Nicotine dependence, cigarettes, uncomplicated Dexter Lopez MD 09/22/2018 Z12.11 Encounter for screening for malignant neoplasm Dexter Lopez MD of colon 09/22/2018 F31.9 Bipolar disorder, unspecified Dexter Lopez MD Plan of Treatment Future Appointment(s):12/17/2018 10:20 am - Chantel Alfaro DO at [facility] Internal Medicine - [address]/16/2018 - Chantel Alfaro DOG89.4 Chronic pain syndromeNew Medication:Duloxetine HCL 60 mg - take one tab dailyComments:I am giving you a list of other pain specialists The maximum daily dose of ibuprofen is 3200 mgReferral:Jaspal Vargas DO, Interventional Pain OuyrgB69.9 Polyneuropathy, unspecifiedNew Orders:EMG w/Nerve Conduct Study, Lower, Ordered: Referral:Hector Vidal M.D., Neurology Functional Status Description No Information Available Mental Status Description No Information Available Referrals Refer to Reason for Referral Status Appt Date Hector Vidal M.D. Created [address] [facility] [place] [address] [place] [address] [phone] Jaspal Vargas DO Created [address] [place] [address] [phone] Jo Krishna NP chronic high dose opioids for frostbite. refer Sent for poss suboxone [address] [place] [address] [phone] [facility] chronic high dose opioids for frostbite. Sent refer for poss suboxone [address] [place] [address] [phone] Catalino Herrera MD chronic pain on oxymorphone 40x5 a Received Partial day;neuropathy [address] [place] [address] [phone] Sha Garcia MD age appropriate colon cancer Received Partial screening. [address] [place] [address] [phone]
--- NOTE | 2018-11-24 13:51 | ED ---
Psychiatric Complaint - HPI Summary HPI Summary: This patient is a 53 year old M arriving via police on 945 status to [facility] with a chief complaint of pain in ankle, back, feet, legs, and shoulders since October of 2018. Patient states that his pain used to be managed by narcotics. Patient has since severed ties with Dr. Montoya and Dr. Thao and Dr. Loepz. Since then patient has been unable to get narcotics to control pain so he states that he is self-medicating by drinking alcohol, smoking marijuana and taking more gabapentin than prescribed 4800 mg-5600mg 3 or 4 times a day. It' s unknown who prescribes this gabapentin. Patient states that his last EtOH intake was at 1126, admits a 12 pack of beer today. Patient states that he has only been sleeping a total of 1 hour per night because of pain. The patient rates the pain 1210 in severity. Symptoms aggravated by movement. Symptoms alleviated by EtOH use and marijuana use. Patient reports chronic pain. Patient denies SI/HI. States he does not want detox. Patient states that he currently sees Mr. Villafuerte at [facility] as his therapist and he has an appointment on 11/27/18 but wants to be seen sooner than this. Home Medications Medication Instructions Recorded Confirmed Type Gabapentin CAP(*) [Neurontin 400 800 mg PO TID 05/12/15 11/11/18 History mg CAP(*)] - History Of Current Complaint Chief Complaint: EDMentalHealth Time Seen by Provider: 11/24/18 13:07 Hx Obtained From: Patient, Other: - police bringing pt in for a wellness check Onset/Duration: Gradual Onset, Lasting Days Timing: Constant Severity Currently: Severe - /10, chronic joint pains Character: Frustrated Aggravating Factor(s): Therapy Non-compliance - has severed ties with three physicians, is taking more gabapentin than prescribed, Alcohol Use, Drug Use Alleviating Factor(s): Counseling - sees Mr. Acosta at [facility], Other - alcohol and marijuana and gabapentin help his chronic pain Associated Signs And Symptoms: Positive: Sleep Disturbance - "1 hour of sleep" per night per pt Related History: Positive For: Prior Psychiatric Issues Has Suicidal: Denies: Thoughts Has Homicidal: Denies: Thoughts - Allergies/Home Medications Allergies/Adverse Reactions: Allergies Allergy/AdvReac Type Severity Reaction Status Date / Time bupropion [From Wellbutrin] Allergy Unknown Itching Verified 11/11/18 22:26 amphetamine [From Adderall] Allergy Altered Verified 11/24/18 13:02 Mental Status dextroamphetamine Allergy Altered Verified 11/24/18 13:02 [From Adderall] Mental Status PMH/Surg Hx/FS Hx/Imm Hx Previously Healthy: No Endocrine/Hematology History: Denies: Hx Diabetes Cardiovascular History: Denies: Hx Hypertension Respiratory History: Reports: Hx Pneumonia GI History: Reports: Other GI Disorders - Hepatitis C Musculoskeletal History: Reports: Other Musculoskeletal History - Bilateral Leg Neuropathy Sensory History: Reports: Hx Contacts or Glasses Opthamlomology History: Reports: Hx Contacts or Glasses Neurological History: Reports: Hx Peripheral Neuropathy Psychiatric History: Reports: Hx Anxiety, Hx Depression, Hx Inpatient Treatment [place] [facility] [place] [facility], Hx [facility], Hx Suicide Attempt - Cut wrist and OD 2016, Hx of Violent Episodes Against Others, Hx Substance Abuse - Alcohol and marijuana - Surgical History Surgical History: Yes Surgery Procedure, Year, and Place: Tonsillectomy - Immunization History Immunizations Up to Date: Unable to Obtain/Confirm Infectious Disease History: Yes Infectious Disease History: Reports: Hx Hepatitis - Hepatitis C, History Other Infectious Disease - Reports having "genital warts" Denies: Traveled Outside the [place] in Last 30 Days - Family History Known Family History: Positive: Hypertension Negative: Diabetes, Renal Disease, Respiratory Disease, Seizure Disorder - Social History Alcohol Use: Daily Alcohol Amount: hx alcohol abuse Hx Substance Use: Yes Substance Use Type: Reports: Marijuana Substance Use Comment - Amount & Last Used: daily Hx Tobacco Use: Yes Smoking Status (MU): Heavy Every Day Tobacco Smoker Type: Cigarettes Amount Used/How Often: 1/2 PPD Have You Smoked in the Last Year: Yes Review of Systems Negative: Fever Cardiovascular: Negative Respiratory: Negative Gastrointestinal: Negative Positive: Other - "pain all over" Skin: Negative Neurological: Negative Psychological: Other - restless in the ED, but cooperative, and in behavioral control, denies SI/HI, denies wish for alcohol detox All Other Systems Reviewed And Are Negative: Yes Physical Exam - Summary Physical Exam Summary: Appearance: well-appearing, reports severe pain distress "all over", well- nourished, does not appear intoxicated Skin: Warm, color reflects adequate perfusion, dry, multiple tattoos Head: Normal Head/Face inspection, atraumatic Eyes: Conjunctiva clear, pupils midpoint, EOMI, no nystagmus ENT: Normal inspection Neck: Supple, no JVD Respiratory: Lungs clear, normal breath sounds, no respiratory distress Cardio: RRR, No murmur, pulses normal, brisk capillary refill Abdomen: Soft, nontender, non-distended, liver and spleen nonpalpable, no masses Bowel sounds: Present Musculoskeletal: Strength Intact/ROM intact, no calf tenderness, no edema, Patient complains of pain throughout all extremities, no spinal tenderness when palpated Psychological: denies SI/HI, conversant, cooperative, Neuro: Alert, O x 3, Motor 5/5, sensation intact to light touch, muscle tone normal, facial symmetry, no slurred speech, normal gait, no focal deficit Triage Information Reviewed: Yes Vital Signs On Initial Exam: Initial Vitals Temp Pulse Resp BP Pulse Ox 98.7 F 83 18 151/101 99 11/24/18 12:58 11/24/18 12:58 11/24/18 12:58 11/24/18 12:58 11/24/18 12:58 Vital Signs Reviewed: Yes Procedures - Sedation Patient Received Moderate/Deep Sedation with Procedure: No Diagnostics - Vital Signs Vital Signs Temp Pulse Resp BP Pulse Ox 11/24/18 12:58 98.7 F 83 18 151/101 99 - Laboratory Lab Statement: Any lab studies that have been ordered have been reviewed, and results considered in the medical decision making process. Re-Evaluation - Re-Evaluation First Eval Re-Evaluation Time: 13:52 Change: Improved Comment: Dr. Wolf advised the pt that she called Mr. Acosta's office and spoke with staff and tried for a sooner appointment for him. She advised patient that Mr. Acosta cannot see patient any sooner than his appointment , but that they will place him on the cancellation list for a sooner appointment. . Course/Dx - Course Course Of Treatment: 53 year old M patient brought to ED by police for a wellness check. Pt was placed on 1:1 observation, prior to MD evaluation. Dr. Wolf presents in pt's room in full universal precautions due to patient's hx of spitting on the ED physician on the most recent ED encounter and that physician having criminal charges against the patient. Therefore this pt is seen by Dr. Wolf, not by the physician with criminal charges against the patient, and Dr. Wolf is wearing universal precautions upon entering the patient's room. Upon ED MD presentation pt states, What is this for? I am not going to spit on you." Patient with history chronic pain and alcoholism and he states he has pain all over and self-medicates with alcohol and marijuana. Patient states he does not want to be here. He denies SI/HI. Pt has no PCP because he has severed his relationship Dr. Montoya and Dr. Thao and Dr. Lopez. Patient is taking more gabapentin than prescribed 4800 mg-5600mg 3 or 4 times a day. Patient denies need for MHE. Pt also declines serum alcohol level. He states he does not want detox today. Pt is in behavioral control while in the ED. States that he just wants go home. Pt's speech is clear. His gait is steady. He is able to make his needs and wishes known. He is clinically sober, despite his reported alcohol intake today. States that he does not have enough beer to last him until his appointment on 11/27/18. Patient has been referred to the pain clinic in past. Patient will be refered patient to pain clinic again. Patient will be discharged with instructions to follow up with Mr. Villafuerte at [facility] on 11/27/18, sooner if there is a cancellation. Patient is agreeable with this plan. The patient is ambulatory at discharge with normal gait and in no apparent distress. - Differential Dx/Clinical Impression Differential Diagnosis/HQI/PQRI: Positive: Acute Psychosis, Alcohol Intoxication , Bipolar Disorder, Suicidal Ideation Provider Diagnosis: Chronic pain, Chronic alcohol abuse Discharge ED - Sign-Out/Discharge Documenting (check all that apply): Patient Departure - discharge Patient Received Moderate/Deep Sedation with Procedure: No - Discharge Plan Condition: Stable Disposition: HOME Patient Education Materials: Chronic Pain (ED), Alcohol Dependence (ED) Referrals: Catalino Herrera MD [Medical Doctor] - As Soon As Possible (This doctor is a provider at the pain clinic.) Additional Instructions: You stated you were not suicidal or homicidal in the ER, and that you did not want to speak to mental health, and you did not want to start detox today. We spoke with Mr. Acosta's office and he is absolutely unable to see you before FridayNov 27, even at a physician's recommendation. The office will put you on a cancellation, and will contact you if someone cancels an appointment before this Friday. We have also referred you to the Pain Clinic which you state you have been referred to in the past. The ER cannot prescribe chronic pain medication for you. Return to the ER if you have any new or worsening symptoms. - Billing Disposition and Condition Condition: STABLE Disposition: Home - Attestation Statements Document Initiated by Jacky: Yes Documenting Vivianaibe: Lynne Ivory Provider For Whom Jacky is Documenting (Include Credential): Dr. Bonita Wolf MD Scribe Attestation: Lynne Alva scribed for Dr. Bonita Wolf MD on 12/27/18 at 1830. Scribe Documentation Reviewed: Yes Provider Attestation: The documentation as recorded by the Lynne barajas accurately reflects the service I personally performed and the decisions made by me, Dr. Bonita Wolf MD Status of Jacky Document: Viewed
[2018-11-24 14:06] VITALS: BP 149/89
== END 2018-11-24 14:06 | disposition home or self-care (01) ==
LOC: ED 12:40
DX: G89.29 Other chronic pain (principal); F10.10 Alcohol abuse, uncomplicated; G62.9 Polyneuropathy, unspecified; Z79.899 Other long term (current) drug therapy; Z88.8 Allergy status to other drugs, medicaments and biological substances; F17.210 Nicotine dependence, cigarettes, uncomplicated
CPT/HCPCS: 99282